=== PATIENT | male | born 1965 | race American Indian/Alaskan Native ===

== ENCOUNTER 2019-12-18 14:57 | Emergency (ER) | payer OTHER ==
[2019-12-18] MEDS ORDERED: Diphtheria,Pertussis(Acell),Tetanus Vaccine 0.5 ML Syringe IM ONE (15:26)
--- NOTE | 2019-12-18 15:28 | EDM.PDOC ---
ED HPI GENERAL MEDICAL PROBLEM - General Chief Complaint: Laceration Stated Complaint: CUT ON MIDDLE FINGER R/ HAND Time Seen by Provider: 12/18/19 15:11 Source of Information: Reports: Patient History Limitations: Reports: No Limitations - History of Present Illness INITIAL COMMENTS - FREE TEXT/NARRATIVE: HISTORY AND PHYSICAL: History of present illness: Patient is a 54-year-old male who presents to the ED today with concern of right hand middle finger injury that occurred just prior to travel to the ED. Patient states he was working with a piece of metal when his finger got pinched between a chain link and the metal. Patient states that he is not up-to-date on his tetanus vaccine. Denies crush injury and states "the piece of skin got pinched and not his finger." States that he has been fully able to move his finger since the injury without any deficit. Patient denies fever, chills, chest pain, shortness of breath, or cough. Denies headache, neck stiff ness, change in vision, syncope, or near syncope. Denies nausea, vomiting, abdominal pain, diarrhea, constipation, or dysuria. Has not noted any blood in urine or stool. Patient has been eating and drinking a ppropriately. Review of systems: As per history of present illness and below otherwise all systems reviewed and negative. Past medical history: As per history of present illness and as reviewed below otherwise noncontributory. Surgical history: As per history of present illness and as reviewed below otherwise noncontributory. Social history: See social history for further information Family history: As per history of present illness and as reviewed below otherwise noncontributory. Physical exam: General: Patient is alert, oriented, and in no acute distress. Patient sitting comfortably on exam table. HEENT: Atraumatic, normocephalic, pupils equal and reactive bilaterally, negative for conjunctival pallor or scleral icterus, mucous membranes moist, TMs normal bilaterally, throat clear, neck supple, nontender, trachea midline. No drooling or trismus noted. No meningeal signs. No hot potato voice noted. Lungs: Clear to auscultation, breath sounds equal bilaterally, chest nontender. Heart: S1S2, regular rate and rhythm without overt murmur Abdomen: Soft, nondistended, nontender. Negative for masses or hepatosplenomegaly. Negative for costovertebral tenderness. Pelvis: Stable nontender. Genitourinary: Deferred. Rectal: Deferred. Skin: Intact, warm, dry. No lesions or rashes noted. Extremities: There is a subcutaneous irregular 2.5 cm laceration over the proximal palmar aspect of the right hand third digit. The laceration is not well aligned and the upper portion is edematous. He does have full range of motion of this digit without deficit and does have full ROM of remainder of digits of the right UE. Radial pulse grossly intact with cap refill < 2 seconds. Otherwise, atraumatic, negative for cords or calf pain. Neurovascular unremarkable. Neuro: Awake, alert, oriented. Cranial nerves II through XII unremarkable. Cerebellum unremarkable. Motor and sensory unremarkable throughout. Exam nonfocal. Notes: Patient states he is willing to update his tetanus today but he declines any therapeutics for wound closure at this time and also declines XR imaging of the affected hand. All risks versus benefits discussed with patient and expresses understanding. Signs and symptoms that would prompt return to the ED thoroughly discussed with patient. Discussed importance for follow-up with a primary care provider. Voices understanding and is agreeable to plan of care. Denies any further questions or concerns at this time. Diagnostics: Patient declines hand XR--all risks vs benefits discussed with patient and expresses understanding. Therapeutics: tetanus, Sterile bulky dressing placed by nursing staff with SurgiSeal, (patient declines all therapeutics for wound closure at this time. All risks vs benefits discussed with patient and expresses understanding) Prescription: None Impression: Finger laceration, right, 3rd digit Plan: 1. Keep the area clean and dry. Continue to monitor for signs of infection as discussed. Keep bandage on for 24 hours before removing. Wound management as discussed. 2. Tylenol and/or ibuprofen as directed and as needed for pain management and discomfort. 3. Please follow-up with your primary care provider as discussed. Return to the ED as needed and as discussed. Definitive disposition and diagnosis as appropriate pending reevaluation and review of above. - Related Data Allergies Allergy/AdvReac Type Severity Reaction Status Date / Time aspirin Allergy Swelling Verified 12/18/19 15:10 Home Meds: Home Meds . [No Known Home Meds] 12/18/19 [History] Past Medical History - Past Health History Medical/Surgical History: Denies Medical/Surgical History - Past Surgical History Musculoskeletal Surgical History: Reports: Other (See Below) Other Musculoskeletal Surgeries/Procedures:: L Elbow Social & Family History - Tobacco Use Tobacco Use Status *Q: Current Every Day Tobacco User Years of Tobacco use: 30 Packs/Tins Daily: 0.2 - Recreational Drug Use Recreational Drug Use: No ED ROS GENERAL - Review of Systems Review Of Systems: Comprehensive ROS is negative, except as noted in HPI. ED EXAM, SKIN/RASH Exam: See Below (see dictation) Course - Vital Signs Last Recorded V/S: Last Vital Signs Temp 95.6 F L 12/18/19 15:08 Pulse 95 12/18/19 15:08 Resp 16 12/18/19 15:08 BP 182/124 H 12/18/19 15:08 Pulse Ox 96 12/18/19 15:08 - Orders/Labs/Meds Orders: Active Orders 24 hr Category Date Time Status Vaccines to be Administered [RC] PER UNIT ROUTINE Care 12/18/19 15:26 Ordered Meds: Medications Discontinued Medications Generic Name Dose Route Start Last Admin Trade Name Freq PRN Reason Stop Dose Admin Diphtheria/Tetanus/Acell Pertussis 0.5 ml 12/18/19 15:26 12/18/19 15:40 Adacel IM 12/18/19 15:27 0.5 ml .ONCE ONE Administration Departure - Departure Time of Disposition: 15:27 Disposition: Home, Self-Care 01 Clinical Impression: Finger laceration Qualifiers: Encounter type: initial encounter Finger: middle finger Damage to nail status: without damage Foreign body presence: without foreign body Laterality: right Qualified Code(s): S61.212A - Laceration without foreign body of right middle finger without damage to nail, initial encounter - Discharge Information Instructions: Laceration Care, Adult, [id number] Referrals: PCP,None [Primary Care Provider] - Forms: ED Department Discharge Additional Instructions: The following information is given to patients seen in the emergency department who are being discharged to home. This information is to outline your options for follow-up care. We provide all patients seen in our emergency department with a follow-up referral. The need for follow-up, as well as the timing and circumstances, are variable depending upon the specifics of your emergency department visit. If you don't have a primary care physician on staff, we will provide you with a referral. We always advise you to contact your personal physician following an emergency department visit to inform them of the circumstance of the visit and for follow-up with them and/or the need for any referrals to a consulting specialist. The emergency department will also refer you to a specialist when appropriate. This referral assures that you have the opportunity for follow-up care with a specialist. All of these measure are taken in an effort to provide you with optimal care, which includes your follow-up. Under all circumstances we always encourage you to contact your private physician who remains a resource for coordinating your care. When calling for follow-up care, please make the office aware that this follow-up is from your recent emergency room visit. If for any reason you are refused follow-up, please contact the [facility] Emergency Department at and asked to speak to the emergency department charge nurse. [facility] [address] [place] [id number] [place] [address] 1. Keep the area clean and dry. Continue to monitor for signs of infection as discussed. Keep bandage on for 24 hours before removing. Wound management as discussed. 2. Tylenol and/or ibuprofen as directed and as needed for pain management and discomfort. 3. Please follow-up with your primary care provider as discussed. Return to the ED as needed and as discussed. Sepsis Event Note (ED) - Evaluation Sepsis Screening Result: No Definite Risk - Focused Exam Vital Signs: Vital Signs Temp Pulse Resp BP Pulse Ox 12/18/19 15:08 95.6 F L 95 16 182/124 H 96 - My Orders Last 24 Hours: My Active Orders 12/18/19 15:26 Vaccines to be Administered [RC] PER UNIT ROUTINE - Assessment/Plan Last 24 Hours: My Active Orders 12/18/19 15:26 Vaccines to be Administered [RC] PER UNIT ROUTINE
== END 2019-12-18 15:50 | disposition home or self-care (01) ==
LOC: MW.ED 14:57
DX: S61.212A Laceration without foreign body of right middle finger without damage to nail, initial encounter (principal); Z23 Encounter for immunization; Z88.6 Allergy status to analgesic agent; F17.210 Nicotine dependence, cigarettes, uncomplicated; W26.8XXA Contact with other sharp object(s), not elsewhere classified, initial encounter
CPT/HCPCS: 90471; 90715; 99283

== ENCOUNTER 2020-05-14 08:25 | Emergency (ER) | payer OTHER ==
[2020-05-14] MEDS ORDERED: Acetaminophen 325 MG Tab PO ONE (08:55)
[2020-05-14] MEDS ORDERED: Lidocaine 1% with EPINEPHrine 1:100,000 20 ML MDV SUBCUT ONE (08:55)
--- NOTE | 2020-05-14 08:58 | EDM.PDOC ---
ED HPI GENERAL MEDICAL PROBLEM - General Chief Complaint: Upper Extremity Injury/Pain Stated Complaint: NAIL IN RT HAND Time Seen by Provider: 05/14/20 08:56 Source of Information: Reports: Patient History Limitations: Reports: No Limitations - History of Present Illness INITIAL COMMENTS - FREE TEXT/NARRATIVE: Is a 54-year-old male who presents today for a nail stuck into his right hand. Patient was using a nail gun when it shocked his wrist and hand. Patient states he can still movement and no numbness. Patient is up-to-date on his tetanus shot. Patient not suffer any other injuries. right hand Pain Score (Numeric/FACES): 4 - Related Data Allergies Allergy/AdvReac Type Severity Reaction Status Date / Time aspirin Allergy Swelling Verified 05/14/20 08:49 Home Meds: Home Meds cephALEXin [Keflex] 500 mg PO Q6HR 5 Days #20 cap 05/14/20 [Rx] Past Medical History - Past Health History Medical/Surgical History: Denies Medical/Surgical History Cardiovascular History: Reports: Hypertension - Past Surgical History Musculoskeletal Surgical History: Reports: Other (See Below) Other Musculoskeletal Surgeries/Procedures:: L Elbow Social & Family History - Recreational Drug Use Recreational Drug Use: No Review of Systems - Review of Systems Review Of Systems: See Below Constitutional: Reports: No Symptoms Eyes: Reports: No Symptoms Ears: Reports: No Symptoms Nose: Reports: No Symptoms Mouth/Throat: Reports: No Symptoms Respiratory: Reports: No Symptoms Cardiovascular: Reports: No Symptoms GI/Abdominal: Reports: No Symptoms Genitourinary: Reports: No Symptoms Musculoskeletal: Reports: Hand Pain Skin: Reports: No Symptoms Neurological: Reports: No Symptoms Psychiatric: Reports: No Symptoms ED EXAM, GENERAL - Physical Exam Exam: See Below Exam Limited By: No Limitations General Appearance: Alert, WD/WN Respiratory/Chest: No Respiratory Distress Peripheral Pulses: 2+: Radial (R) Extremities: Normal Range of Motion, Other (nail about 6in with 2in under skin along lateral thumb). No: Non-Tender ED TRAUMA EXTREMITY PROCEDURES - Additional/Other Procedure(s) Other (Free Text) Procedure(s): You some subcutaneous lidocaine made a small slit the top of the skin. Nail was able to easily be removed. Patient has good neurovascular intact. Patient be discharged antibiotics. Course - Vital Signs Last Recorded V/S: Last Vital Signs Temp 97.6 F 05/14/20 08:54 Pulse 79 05/14/20 08:54 Resp 16 05/14/20 08:54 BP 185/127 H 05/14/20 08:54 Pulse Ox 97 05/14/20 08:54 - Orders/Labs/Meds Meds: Medications Discontinued Medications Generic Name Dose Route Start Last Admin Trade Name Carl PRN Reason Stop Dose Admin Acetaminophen 650 mg 05/14/20 08:55 05/14/20 09:04 Acetaminophen 325 Mg Tab PO 05/14/20 08:56 650 mg NOW ONE Administration Lidocaine/Epinephrine 20 ml 05/14/20 08:55 05/14/20 09:04 Lidocaine 1% With Epinephrine 1:100,000 20 Ml Mdv SUBCUT 05/14/20 08:56 20 ml ONETIME ONE Administration - Re-Assessments/Exams Free Text/Narrative Re-Assessment/Exam: 05/14/20 09:38 Patient had the nail removed has good range of motion good sensation in his hand. Patient will be discharged with antibiotics. Departure - Departure Time of Disposition: 09:40 Disposition: Home, Self-Care 01 Condition: Good Clinical Impression: Injury of hand by nail gun - Discharge Information *PRESCRIPTION DRUG MONITORING PROGRAM REVIEWED*: Not Applicable *COPY OF PRESCRIPTION DRUG MONITORING REPORT IN PATIENT DANNY: Not Applicable Instructions: Crush Injury of the Hand, [id number] Referrals: PCP,None [Primary Care Provider] - Forms: ED Department Discharge Additional Instructions: The following information is given to patients seen in the emergency department who are being discharged to home. This information is to outline your options for follow-up care. We provide all patients seen in our emergency department with a follow-up referral. The need for follow-up, as well as the timing and circumstances, are variable depending upon the specifics of your emergency department visit. If you don't have a primary care physician on staff, we will provide you with a referral. We always advise you to contact your personal physician following an emergency department visit to inform them of the circumstance of the visit and for follow-up with them and/or the need for any referrals to a consulting specialist. The emergency department will also refer you to a specialist when appropriate. This referral assures that you have the opportunity for follow-up care with a specialist. All of these measure are taken in an effort to provide you with optimal care, which includes your follow-up. Under all circumstances we always encourage you to contact your private physician who remains a resource for coordinating your care. When calling for follow-up care, please make the office aware that this follow-up is from your recent emergency room visit. If for any reason you are refused follow-up, please contact the [facility] Emergency Department at and asked to speak to the emergency department charge nurse. Please follow up with your primary care physician. If you do not have a primary care physician, see below: [facility] [address] [place] [id number] [facility] [address] [place] [address] Please follow-up with your primary care physician. Please look at the wound daily make sure to keep the area clean and wash it every day. If you have any drainage or discharge from that area or redness please return to the ED immediately. Sepsis Event Note (ED) - Focused Exam Vital Signs: Vital Signs Temp Pulse Resp BP Pulse Ox 05/14/20 08:54 97.6 F 79 16 185/127 H 97 - Assessment/Plan Plan: Patient is a 54-year-old male presents today with a nail embedded along his right thumb down to his wrist. Patient's radial pulses intact has good range of motion. Will attempt to use a little lidocaine to numb the skin and need to make a slip and pull the nail out.
--- NOTE | 2020-05-14 09:33 | CR ---
Indication: Nail stuck in wrist Comparison: None available. Technique: AP, Lateral, and Oblique views right hand were obtained Findings: There is no displaced fracture or dislocation. The joint spaces are grossly preserved. There is demonstration of a nail within the superficial subcutaneous tissues of the medial right wrist. Impression: Demonstration of radiopaque nail within the superficial subcutaneous tissues of the right wrist. No acute osseous abnormality or bony involvement. Dictated by Dario Sanderson MD @ May 14 2020 9:30AM Signed by Dr. Dario Sanderson @ May 14 2020 9:31AM
[2020-05-14] MEDS ORDERED: Cephalexin 500 MG Cap PO ONE (09:41)
== END 2020-05-14 09:54 | disposition home or self-care (01) ==
LOC: MW.ED 08:25
DX: S61.431A Puncture wound without foreign body of right hand, initial encounter (principal); I10 Essential (primary) hypertension; Z88.8 Allergy status to other drugs, medicaments and biological substances; W29.4XXA Contact with nail gun, initial encounter
CPT/HCPCS: 11730; 73130; 99283; A9270

== ENCOUNTER 2020-06-25 16:09 | Emergency (ER) | payer OTHER ==
[2020-06-25] MEDS ORDERED: Famotidine 20 MG Tab PO ONE (16:58)
[2020-06-25] MEDS ORDERED: methylPREDNISolone Sodium Succinate 125 MG/2 ML SDV IVPUSH ONE (16:58)
--- NOTE | 2020-06-25 17:04 | EDM.PDOC ---
ED HPI GENERAL MEDICAL PROBLEM - General Chief Complaint: Allergic Reaction Stated Complaint: RT FOOT AND BOTTOM LIP SWELLING Time Seen by Provider: 06/25/20 16:48 - History of Present Illness INITIAL COMMENTS - FREE TEXT/NARRATIVE: 54-year-old male history of suspected aspirin allergy some unclear reactions to ibuprofen in the past as well as a history of hypertension who is presenting with lower lip swelling. Patient took 600 mg of ibuprofen at approximately 9 AM. Starting a couple hours later he developed lower lip swelling that is gradually worsened. Difficulty breathing no difficulty swallowing no difficulty handling secretions no rash no vomiting no diarrhea. Symptoms constant and stable to slightly worsening no alleviating factors radiation or other associated symptoms patient took 50 mg of Benadryl 3 hours ago. - Related Data Allergies Allergy/AdvReac Type Severity Reaction Status Date / Time aspirin Allergy Swelling Verified 05/14/20 08:49 ibuprofen Allergy Hives Verified 06/25/20 16:59 Home Meds: Home Meds predniSONE [Prednisone] 40 mg PO DAILY 4 Days #8 tablet 06/25/20 [Rx] Past Medical History - Past Health History Medical/Surgical History: Denies Medical/Surgical History Cardiovascular History: Reports: Hypertension - Past Surgical History Musculoskeletal Surgical History: Reports: Other (See Below) Other Musculoskeletal Surgeries/Procedures:: L Elbow ED ROS ALLERGIC REACTION - Review of Systems Review Of Systems: See Below Free Text/Narrative/Comment: General: No fever. Skin: No rash. Eyes: No vision problems. ENT: No sore throat. Neck: No neck stiffness. Respiratory: No shortness of breath. Cardiac: No chest pain. Gastrointestinal: No nausea, vomiting or abdominal pain. Urinary: No dysuria. Musculoskeletal: No myalgias/arthralgias. Neurologic: No headache. ED EXAM GENERAL NO PERIP PULSE - Physical Exam Exam: See Below Text/Narrative:: General Appearance: No acute distress, appears comfortable Skin: No rash HEENT: Normocephalic/atraumatic, sclera anicteric, mucous membranes moist, significant lower lip swelling and edema, no submental or sublingual swelling, no stridor Neck: Normal range of motion Chest and Lungs: Bilateral breath sounds, clear to auscultation, no wheezing Cardiovascular: Regular rate and rhythm, no murmur Back: Normal Musculoskeletal: No edema or tenderness Neurologic: Awake, alert, no obvious deficits, moving all extremities Psychiatric: Appropriate, cooperative Course - Vital Signs Last Recorded V/S: Last Vital Signs Temp 97.9 F 06/25/20 16:52 Pulse 78 06/25/20 16:52 Resp 17 06/25/20 16:52 BP 162/104 H 06/25/20 16:52 Pulse Ox 96 06/25/20 16:52 - Orders/Labs/Meds Meds: Medications Discontinued Medications Generic Name Dose Route Start Last Admin Trade Name Freq PRN Reason Stop Dose Admin Famotidine 20 mg 06/25/20 16:58 06/25/20 17:04 Famotidine 20 Mg Tab PO 06/25/20 16:59 20 mg ONETIME ONE Administration Methylprednisolone Sodium Succinate 125 mg 06/25/20 16:58 06/25/20 17:04 Methylprednisolone Sodium Succinate 125 Mg/2 Ml Sdv IVPUSH 06/25/20 16:59 125 mg ONETIME ONE Administration Departure - Departure Time of Disposition: 17:31 Disposition: Home, Self-Care 01 Condition: Good Clinical Impression: Angio-edema - Discharge Information *PRESCRIPTION DRUG MONITORING PROGRAM REVIEWED*: Not Applicable *COPY OF PRESCRIPTION DRUG MONITORING REPORT IN PATIENT DANNY: Not Applicable Prescriptions: predniSONE [Prednisone] 40 mg PO DAILY 4 Days #8 tablet Instructions: Angioedema, [id number] Referrals: PCP,None [Primary Care Provider] - Forms: ED Department Discharge Additional Instructions: Your swelling should gradually improve over the next 24 to 48 hours. Please complete the entire course of prednisone. If you have worsening symptoms particularly if you start to experience any tightness in your chest difficulty breathing or difficulty swallowing please return to the ER immediately. Please avoid aspirin and ibuprofen as well as any other nonsteroidal anti- inflammatories. The following information is given to patients seen in the emergency department who are being discharged to home. This information is to outline your options for follow-up care. We provide all patients seen in our emergency department with a follow-up referral. The need for follow-up, as well as the timing and circumstances, are variable depending upon the specifics of your emergency department visit. If you don't have a primary care physician on staff, we will provide you with a referral. We always advise you to contact your personal physician following an emergency department visit to inform them of the circumstance of the visit and for follow-up with them and/or the need for any referrals to a consulting specialist. The emergency department will also refer you to a specialist when appropriate. This referral assures that you have the opportunity for follow-up care with a specialist. All of these measure are taken in an effort to provide you with optimal care, which includes your follow-up. Under all circumstances we always encourage you to contact your private physician who remains a resource for coordinating your care. When calling for follow-up care, please make the office aware that this follow-up is from your recent emergency room visit. If for any reason you are refused follow-up, please contact the [facility] Emergency Department at and asked to speak to the emergency department charge nurse. Sepsis Event Note (ED) - Evaluation Sepsis Screening Result: No Definite Risk - Focused Exam Vital Signs: Vital Signs Temp Pulse Resp BP Pulse Ox 06/25/20 16:52 97.9 F 78 17 162/104 H 96 - Assessment/Plan Assessment:: 54-year-old male presenting with angioedema likely in response to ibuprofen. No other symptoms to involvement given the angioedema will provide Pepcid and Solu- Medrol. Will observe closely hopeful for discharge on oral steroid burst. Patient with no progression of symptoms discharged with follow-up
== END 2020-06-25 17:45 | disposition home or self-care (01) ==
LOC: MW.ED 16:09
DX: T78.3XXA Angioneurotic edema, initial encounter (principal); I10 Essential (primary) hypertension; Z88.6 Allergy status to analgesic agent
CPT/HCPCS: 96374; 99283; A9270; J2930